=== PATIENT | female | born 1970 | race Caucasian/White ===

== ENCOUNTER 2019-08-26 22:16 | Emergency (ER) | payer OTHER ==
[~2019-08-26] VITALS: Ht 162.6 cm; Wt 76.3 kg
--- NOTE | 2019-08-26 22:39 | NUR ---
pt is 49 yo female c/o rt flank pain off and on x1 day, nonradiating, "sharp...pinching", no dysuria, finished 10 day course of antibiotic 2-3 days ago for cough, sinus problems, treating yeast infection with monistat, no n/v, no fever/chills, waiting to be evaluated provider
[2019-08-26 22:51] LABS: CLARITY,URINE SLIGHTLY CLOUDY (Clear); COLOR,URINE YELLOW (Yellow); GLUCOSE, URINE NEGATIVE (Neg); KETONES,URINE NEGATIVE (Neg); LEUKOCYTE ESTERASE ,URINE SMALL (Neg); NITRITES, URINE NEGATIVE (Neg); OCCULT BLOOD,URINE TRACE-INTACT (Neg); PROTEIN,URINE NEGATIVE (Neg); UA COLLECTION TYPE CLN CATCH MIDSTREAM; UROBILINOGEN,URINE 0.2 E.U/dL (0.2-1.0)
[2019-08-26 22:57] LABS: BACTERIA,URINE NONE SEEN /HPF (Neg); RBC,URINE NONE SEEN /HPF (0-2); SQUAMOUS EPITHELIAL CELL,UR MODERATE /LPF (FEW); WBC,URINE 0-4 /HPF (0-4)
[2019-08-26] MEDS ORDERED: fluconazole 150mg tablet PO ONE (23:50)
[2019-08-26] MEDS ORDERED: ketorolac tromethamine 15mg/ml inj. IM ONE (23:50)
[2019-08-26] MEDS ORDERED: FLUC150T PO (23:56)
[2019-08-27 00:07] VITALS: BP 141/85
== END 2019-08-27 00:10 | disposition home or self-care (01) ==
LOC: ER 22:17 → EDBD 22:17 → ER 08-27 00:10
DX: B37.3 Candidiasis of vulva and vagina (principal); Z87.442 Personal history of urinary calculi; Z91.030 Bee allergy status
CPT/HCPCS: 71045; 81001; 87088; 96372; 99284; J1885